=== PATIENT | male | born 1995 | race Caucasian/White ===

== ENCOUNTER 2025-01-30 07:34 | Emergency (ER) | payer SELFPAY ==
[~2025-01-30] VITALS: Ht 177.8 cm; Wt 55.0 kg
[2025-01-30 07:57] VITALS: O2SAT 98
[2025-01-30] MEDS ORDERED: HYDR10TA34 MT (08:33)
[2025-01-30 08:42] VITALS: BP 109/73; PULSE 63; RESP 18; TEMP 36.6; O2SAT 100
== END 2025-01-30 09:33 | disposition home or self-care (01) ==
LOC: ER 07:34
DX: F41.9 Anxiety disorder, unspecified (principal); G47.00 Insomnia, unspecified; Z98.890 Other specified postprocedural states
CPT/HCPCS: 93005; 99283; Z7610

== ENCOUNTER 2025-01-31 07:05 | Emergency (ER) | payer SELFPAY ==
[~2025-01-31] VITALS: Ht 172.7 cm; Wt 66.0 kg
[~2025-01-31 07:05] MED LIST: HYDR10TA34 MT
[2025-01-31 07:07] VITALS: BP 101/78; PULSE 90; RESP 20; TEMP 36.4; O2SAT 100
== END 2025-01-31 19:53 | disposition left against medical advice (07) ==
LOC: ER 07:05
DX: R56.9 Unspecified convulsions (principal); F41.9 Anxiety disorder, unspecified; Z79.899 Other long term (current) drug therapy
CPT/HCPCS: 99284; Z7610; 99283